=== PATIENT | male | born 1980 | race Hispanic/Latino ===

== ENCOUNTER 2017-07-21 22:16 | Inpatient (IN) | payer OTHER ==
[~2017-07-21] VITALS: Ht 180.3 cm; Wt 92.9 kg
[2017-07-21] MEDS ORDERED: CLINDAMYCIN 600 MG/D5% WATER 50 ML IV ONE (22:44)
[2017-07-21] MEDS ORDERED: ACETAMINOPHEN 325 MG TAB ONE (22:44)
[2017-07-21 22:46] LABS: BASOPHILS % (AUTO) 0.4 % (0.0-5.0); EOSINOPHILS % (AUTO) 0.1 % (0.0-8.0); HEMATOCRIT 38.3 % (42-54); LYMPHOCYTES % (AUTO) 10.3 % (21.0-51.0); MEAN CORPUSCULAR HEMOGLOBIN 29.5 pg (27.0-33.0); MEAN CORPUSCULAR HGB CONC 34.1 g/dL (32.0-36.0); MEAN CORPUSCULAR VOLUME 86.5 fL (79-99); MONOCYTES % (AUTO) 8.5 % (3.0-13.0); NEUTROPHILS % (AUTO) 80.7 % (40.0-77.0); PLATELET COUNT (AUTO) 181 K/uL (130-400); RED BLOOD CELL COUNT(AUTO) 4.43 MIL/uL (4.50-6.20); RED CELL DISTRIBUTION WIDTH 14.2 % (11.0-15.5); WHITE BLOOD COUNT (AUTO) 9.3 K/uL (4.8-10.8)
[2017-07-21 23:03] LABS: BILIRUBIN,TOTAL 0.3 mg/dL (0.2-1.0); CREATININE 1.8 mg/dL (0.5-1.5); POTASSIUM 4.4 mmol/L (3.5-5.1); TOTAL PROTEIN, SERUM 7.6 g/dL (6.0-8.3)
[2017-07-22] MEDS ORDERED: INSULIN HUMULIN R 100 UNIT/ML 3ML ONE ×3 (00:32→08:46)
[2017-07-22 01:05] LABS: APPEARANCE,URINE Clear (CLEAR); BILIRUBIN,URINE Negative (NEGATIVE); COLOR,URINE Yellow (YELLOW); GLUCOSE, URINE (UA) >=1000 mg/dL (NEGATIVE); KETONES,URINE 40 mg/dL (NEGATIVE); LEUKOCYTE ESTERASE ,URINE Negative (NEGATIVE); NITRATE,URINE Negative (NEGATIVE); OCCULT BLOOD,URINE Nonhemolyzed Trace (NEGATIVE); PH,URINE 5.5 (5.0-8.0); PROTEIN,URINE Negative (NEGATIVE); UROBILINOGEN,URINE 0.2 mg/dL (0.2-1.0)
[2017-07-22] MEDS ORDERED: SODIUM CHLORIDE 0.9% 1000ML 1,000 ML IV SCH ×2 (01:15→17:15)
[2017-07-22] MEDS ORDERED: ONDANSETRON HCL MDV 20ML 2 MG/ML VIAL IVP PRN (01:15)
[2017-07-22] MEDS ORDERED: FAMOTIDINE 20MG TAB 20 MG TAB PO SCH (01:15)
[2017-07-22 01:22] LABS: BACTERIA,URINE Rare /HPF (None Seen); RBC,URINE 0-1 /HPF (0-1); WBC,URINE None Seen /HPF (0-1)
[2017-07-22] MEDS ORDERED: FAMOTIDINE 20MG TAB 20 MG TAB ONE (02:18)
[2017-07-22] MEDS ORDERED: CLINDAMYCIN 600 MG/D5% WATER 50 ML IV ONE ×2 (04:27→11:40)
[2017-07-22] MEDS: CLINDAMYCIN 600 MG/D5% WATER 50 ML IV SCH ×3 (07:15→20:30)
[2017-07-22] MEDS: INSULIN HUMULIN R 100 UNIT/ML 3ML SQ SCH ×4 (07:30→20:34)
[2017-07-22 07:54] VITALS: BP 140/75
[2017-07-22] MEDS ORDERED: HUM10VIA6 SQ ×2 (08:06)
[2017-07-22] MEDS: ENOXAPARIN SODIUM 40 MG/0.4 ML SYRINGE SQ SCH (09:00)
[2017-07-22] MEDS: INSULIN HUMULIN 70/30 100 UNIT/ML 3ML SQ SCH (09:00)
[2017-07-22] MEDS ORDERED: ENOXAPARIN SODIUM 40 MG/0.4 ML SYRINGE SQ ONE (11:40)
[2017-07-22] MEDS ORDERED: INSULIN HUMULIN 70/30 100 UNIT/ML 3ML SQ ONE (11:42)
[2017-07-22 14:01] VITALS: BP 128/73
[2017-07-22] MEDS ORDERED: GADOBENATE DIMEGLUMINE 10 ML IV ONE (15:39)
[2017-07-22 16:00] VITALS: BP 135/76
[2017-07-22] MEDS: LEVOFLOXACIN 500 MG/D5W 100 ML 100 ML IV SCH (16:37)
[2017-07-22] MEDS: ACETAMINOPHEN-CODEINE 300/30MG TAB PO PRN (18:11)
[2017-07-22 19:00] VITALS: BP 139/77
[2017-07-22] MEDS ORDERED: INSULIN HUMULIN 70/30 100 UNIT/ML 3ML SQ SCH (21:00)
[2017-07-23] VITALS: BP 113/71
[2017-07-23] MEDS: ACETAMINOPHEN-CODEINE 300/30MG TAB PO PRN (00:07)
[2017-07-23] MEDS: CLINDAMYCIN 600 MG/D5% WATER 50 ML IV SCH ×3 (01:35→12:51)
[2017-07-23 04:00] VITALS: BP 126/63
[2017-07-23 06:14] LABS: BASOPHILS % (AUTO) 0.3 % (0.0-5.0); EOSINOPHILS % (AUTO) 2.5 % (0.0-8.0); HEMATOCRIT 36.8 % (42-54); LYMPHOCYTES % (AUTO) 31.2 % (21.0-51.0); MEAN CORPUSCULAR HEMOGLOBIN 28.9 pg (27.0-33.0); MEAN CORPUSCULAR HGB CONC 33.9 g/dL (32.0-36.0); MEAN CORPUSCULAR VOLUME 85.5 fL (79-99); MONOCYTES % (AUTO) 11.8 % (3.0-13.0); NEUTROPHILS % (AUTO) 54.2 % (40.0-77.0); PLATELET COUNT (AUTO) 194 K/uL (130-400); RED BLOOD CELL COUNT(AUTO) 4.31 MIL/uL (4.50-6.20); RED CELL DISTRIBUTION WIDTH 14.1 % (11.0-15.5); WHITE BLOOD COUNT (AUTO) 5.2 K/uL (4.8-10.8)
[2017-07-23 06:24] LABS: POTASSIUM 3.3 mmol/L (3.5-5.1)
[2017-07-23] MEDS: INSULIN HUMULIN R 100 UNIT/ML 3ML SQ SCH ×3 (06:32→17:29)
[2017-07-23 08:00] VITALS: BP 131/77
[2017-07-23] MEDS: ENOXAPARIN SODIUM 40 MG/0.4 ML SYRINGE SQ SCH (09:33)
[2017-07-23] MEDS: INSULIN HUMULIN 70/30 100 UNIT/ML 3ML SQ SCH (09:38)
[2017-07-23 11:00] VITALS: BP 137/79
[2017-07-23 16:00] VITALS: BP 116/69
[2017-07-23] MEDS: LEVOFLOXACIN 500 MG/D5W 100 ML 100 ML IV SCH (16:15)
[2017-07-23] MEDS ORDERED: INSULIN HUMULIN R 100 UNIT/ML 3ML SQ ONE (17:57)
== END 2017-07-23 18:53 | disposition left against medical advice (07) | DRG 602 ==
LOC: EDH 22:16 → EDHIP 07-22 00:26 → 3AH 07-22 13:44
PROVIDERS: ADMIT Family Medicine; ATTEND Family Medicine
DX: L03.116 Cellulitis of left lower limb (principal); N17.0 Acute kidney failure with tubular necrosis; M86.8X7 Other osteomyelitis, ankle and foot; E10.649 Type 1 diabetes mellitus with hypoglycemia without coma; E87.1 Hypo-osmolality and hyponatremia; E10.51 Type 1 diabetes mellitus with diabetic peripheral angiopathy without gangrene; E10.69 Type 1 diabetes mellitus with other specified complication; E10.65 Type 1 diabetes mellitus with hyperglycemia; Z53.21 Procedure and treatment not carried out due to patient leaving prior to being seen by health care provider; Z83.3 Family history of diabetes mellitus; Z89.412 Acquired absence of left great toe; I10 Essential (primary) hypertension; F17.210 Nicotine dependence, cigarettes, uncomplicated
CPT/HCPCS: 36415; 73630; 73720; 80048; 80053; 81001; 82570; 82948; 84156; 85025; 87040; 87186; A9577; J1650; J1815; J1956; J3490

== ENCOUNTER 2019-04-22 15:42 | Emergency (ER) | payer OTHER ==
[~2019-04-22 15:42] MED LIST: HUM10VIA6 SQ
[2019-04-22] MEDS ORDERED: MAG HYDROX/AL HYDROX/SIMETH ES 30 ML SUSP UDCUP ONE ×2 (15:52→18:05)
[2019-04-22] MEDS ORDERED: LIDOCAINE HCL 2% VISCOUS 15 ML UDCUP ONE ×2 (15:52→18:05)
[2019-04-22] MEDS ORDERED: SODIUM CHLORIDE 0.9% 1000ML 1,000 ML IV ONE ×2 (16:10→18:01)
[2019-04-22] MEDS ORDERED: FAMOTIDINE/PF 20 MG/2 ML VIAL IV ONE (16:10)
[2019-04-22 16:12] LABS: BASOPHILS % (AUTO) 0.3 % (0.0-5.0); EOSINOPHILS % (AUTO) 0.4 % (0.0-8.0); HEMATOCRIT 46.3 % (42-54); LYMPHOCYTES % (AUTO) 19.3 % (21.0-51.0); MEAN CORPUSCULAR HEMOGLOBIN 28.6 pg (27.0-33.0); MEAN CORPUSCULAR HGB CONC 33.5 g/dL (32.0-36.0); MEAN CORPUSCULAR VOLUME 85.4 fL (79-99); MONOCYTES % (AUTO) 8.7 % (3.0-13.0); NEUTROPHILS % (AUTO) 71.2 % (40.0-77.0); PLATELET COUNT (AUTO) 245 K/uL (130-400); RED BLOOD CELL COUNT(AUTO) 5.42 MIL/uL (4.50-6.20); RED CELL DISTRIBUTION WIDTH 13.2 % (11.0-15.5); WHITE BLOOD COUNT (AUTO) 7.3 K/uL (4.8-10.8)
[2019-04-22 16:27] LABS: BILIRUBIN,TOTAL 0.4 mg/dL (0.2-1.0); CREATININE 1.5 mg/dL (0.5-1.5); POTASSIUM 4.6 mmol/L (3.5-5.1); TOTAL PROTEIN, SERUM 7.8 g/dL (6.0-8.3)
[2019-04-22] MEDS ORDERED: ACETAMINOPHEN 325 MG TAB ONE (18:00)
== END 2019-04-22 19:46 | disposition home or self-care (01) ==
LOC: EDH 15:42
DX: K21.9 Gastro-esophageal reflux disease without esophagitis (principal); R11.2 Nausea with vomiting, unspecified; E11.9 Type 2 diabetes mellitus without complications; Z79.4 Long term (current) use of insulin
CPT/HCPCS: 36415; 80053; 83690; 84484; 85025; 93005; 96361; 96374; 99285; J3490; J7030 ×2

== ENCOUNTER 2019-09-04 01:31 | Emergency (ER) | payer OTHER ==
[2019-09-04] MEDS ORDERED: SULFAMETHOX-TMP DS 800/160 TAB ONE (01:50)
== END 2019-09-04 03:07 | disposition home or self-care (01) ==
LOC: EDH 01:31
DX: S91.311A Laceration without foreign body, right foot, initial encounter (principal); E11.9 Type 2 diabetes mellitus without complications; Z72.0 Tobacco use; X58.XXXA Exposure to other specified factors, initial encounter; Y93.89 Activity, other specified; Y92.89 Other specified places as the place of occurrence of the external cause; Y99.8 Other external cause status
CPT/HCPCS: 73660; 93005

== ENCOUNTER 2019-12-05 05:31 | Emergency (ER) | payer OTHER ==
[2019-12-05 06:10] LABS: BASOPHILS % (AUTO) 0.2 % (0.0-5.0); EOSINOPHILS % (AUTO) 1.2 % (0.0-8.0); HEMATOCRIT 42.7 % (42-54); LYMPHOCYTES % (AUTO) 26.1 % (21.0-51.0); MEAN CORPUSCULAR HEMOGLOBIN 28.5 pg (27.0-33.0); MEAN CORPUSCULAR HGB CONC 33.3 g/dL (32.0-36.0); MEAN CORPUSCULAR VOLUME 85.6 fL (79-99); MONOCYTES % (AUTO) 11.5 % (3.0-13.0); NEUTROPHILS % (AUTO) 60.7 % (40.0-77.0); PLATELET COUNT (AUTO) 182 K/uL (130-400); RED BLOOD CELL COUNT(AUTO) 4.99 MIL/uL (4.50-6.20); RED CELL DISTRIBUTION WIDTH 13.1 % (11.0-15.5); WHITE BLOOD COUNT (AUTO) 6.6 K/uL (4.8-10.8)
[2019-12-05 06:19] LABS: POTASSIUM 3.4 mmol/L (3.5-5.1)
[2019-12-05 06:23] LABS: ALBUMIN 3.2 g/dL (3.5-5.0); BILIRUBIN,TOTAL 0.2 mg/dL (0.2-1.0); CRP QUANTITATIVE 66.4 mg/L (0.00-9.0); TOTAL PROTEIN, SERUM 7.3 g/dL (6.0-8.3)
[2019-12-05] MEDS ORDERED: SODIUM CHLORIDE 0.9% 100 ML IV ONE ×2 (06:46→07:01)
[2019-12-05] MEDS ORDERED: CEFTRIAXONE SODIUM 1 GM ONE ×2 (06:46→07:01)
[2019-12-05 07:23] LABS: ERYTHROCYTE SEDIMENTATION RATE 17 MM/HR (0-15)
== END 2019-12-05 07:06 | disposition home or self-care (01) ==
LOC: EDH 05:31
DX: E11.621 Type 2 diabetes mellitus with foot ulcer (principal)
CPT/HCPCS: 36415; 73630; 80053; 82948; 85025; 85651; 86140; 87040; 96374; 99284; J0696 ×2

== ENCOUNTER 2020-03-08 22:38 | Emergency (ER) | payer OTHER ==
[2020-03-08 23:43] LABS: BASOPHILS % (AUTO) 0.2 % (0.0-5.0); EOSINOPHILS % (AUTO) 0.6 % (0.0-8.0); HEMATOCRIT 44.4 % (42-54); LYMPHOCYTES % (AUTO) 18.3 % (21.0-51.0); MEAN CORPUSCULAR HEMOGLOBIN 29.4 pg (27.0-33.0); MEAN CORPUSCULAR HGB CONC 33.3 g/dL (32.0-36.0); MEAN CORPUSCULAR VOLUME 88.1 fL (79-99); MONOCYTES % (AUTO) 7.7 % (3.0-13.0); PLATELET COUNT (AUTO) 211 K/uL (130-400); RED BLOOD CELL COUNT(AUTO) 5.04 MIL/uL (4.50-6.20); RED CELL DISTRIBUTION WIDTH 13.2 % (11.0-15.5); WHITE BLOOD COUNT (AUTO) 9.5 K/uL (4.8-10.8)
[2020-03-08 23:53] LABS: INR 0.87 (0.85-1.15); PARTIAL THROMBOPLASTIN TIME 27.5 SEC (26.3-35.5); PROTHROMBIN TIME 9.4 SEC (9.6-11.6)
[2020-03-08 23:57] LABS: ALBUMIN 3.2 g/dL (3.5-5.0); BILIRUBIN,TOTAL 0.2 mg/dL (0.2-1.0); CREATININE 1.5 mg/dL (0.5-1.5); CRP QUANTITATIVE 95.5 mg/L (0.00-9.0); POTASSIUM 4.3 mmol/L (3.5-5.1); TOTAL PROTEIN, SERUM 7.2 g/dL (6.0-8.3)
[2020-03-09 00:47] LABS: ERYTHROCYTE SEDIMENTATION RATE 20 MM/HR (0-15)
[2020-03-09] MEDS ORDERED: CLINDAMYCIN 600 MG/D5% WATER 50 ML IV ONE (01:01)
[2020-03-09] MEDS ORDERED: INSULIN HUMULIN R 100 UNIT/ML 3ML ONE (01:06)
== END 2020-03-09 01:44 | disposition home or self-care (01) ==
LOC: EDH 22:38
DX: T81.49XA Infection following a procedure, other surgical site, initial encounter (principal); E11.65 Type 2 diabetes mellitus with hyperglycemia; I88.8 Other nonspecific lymphadenitis; L08.9 Local infection of the skin and subcutaneous tissue, unspecified; Z98.890 Other specified postprocedural states
CPT/HCPCS: 36415; 73630; 80053; 82550; 83605; 85025; 85610; 85651; 85730; 86140; 87040 ×2; 93971; 96361; 96365; 96375; 99285; J1815; J3490

== ENCOUNTER 2021-01-09 21:14 | Emergency (ER) | payer OTHER ==
[~2021-01-09] VITALS: Ht 180.3 cm; Wt 93.4 kg
[2021-01-09 21:19] VITALS: BP 111/77
[2021-01-09 22:19] LABS: BASOPHILS % (AUTO) 0.2 % (0.0-5.0); EOSINOPHILS % (AUTO) 1.3 % (0.0-8.0); HEMATOCRIT 39.8 % (42-54); LYMPHOCYTES % (AUTO) 24.5 % (21.0-51.0); MEAN CORPUSCULAR HGB CONC 33.2 g/dL (32.0-36.0); MEAN CORPUSCULAR VOLUME 87.5 fL (79-99); MONOCYTES % (AUTO) 8.4 % (3.0-13.0); NEUTROPHILS % (AUTO) 65.1 % (40.0-77.0); PLATELET COUNT (AUTO) 237 K/uL (130-400); RED BLOOD CELL COUNT(AUTO) 4.55 MIL/uL (4.50-6.20); RED CELL DISTRIBUTION WIDTH 13.8 % (11.0-15.5); WHITE BLOOD COUNT (AUTO) 6.2 K/uL (4.8-10.8)
[2021-01-09 22:33] LABS: CREATININE 1.3 mg/dL (0.5-1.5); POTASSIUM 4.8 mmol/L (3.5-5.1)
[2021-01-09 22:37] LABS: ALBUMIN 3.2 g/dL (3.5-5.0); BILIRUBIN,TOTAL 0.2 mg/dL (0.2-1.0); CRP QUANTITATIVE 43.4 mg/L (0.00-9.0); TOTAL PROTEIN, SERUM 7.3 g/dL (6.0-8.3)
[2021-01-09] MEDS ORDERED: 0.9%NACL 1000ML 1,000 ML IV ONE (23:00)
[2021-01-09] MEDS ORDERED: INSULIN HUMULIN R 100 UNIT/ML 3ML IV ONE (23:00)
[2021-01-10] VITALS: BP 114/73
== END 2021-01-10 00:10 | disposition home or self-care (01) ==
LOC: EDH 21:14
DX: S90.121A Contusion of right lesser toe(s) without damage to nail, initial encounter (principal); E11.40 Type 2 diabetes mellitus with diabetic neuropathy, unspecified; E11.621 Type 2 diabetes mellitus with foot ulcer; E11.65 Type 2 diabetes mellitus with hyperglycemia; Z79.4 Long term (current) use of insulin; Z98.890 Other specified postprocedural states; X58.XXXA Exposure to other specified factors, initial encounter; Y93.89 Activity, other specified; Y92.89 Other specified places as the place of occurrence of the external cause; Y99.8 Other external cause status
CPT/HCPCS: 36415; 73660; 80053; 82948; 85025; 86140; 96374; 99284; J1815; J7030; 96372

== ENCOUNTER 2021-06-29 22:11 | Inpatient (IN) | payer OTHER ==
[~2021-06-29] VITALS: Ht 177.8 cm; Wt 88.3 kg
[2021-06-29] MEDS ORDERED: MORPHINE 4 MG SYG IV ONE (23:00)
[2021-06-29] MEDS ORDERED: ONDANSETRON 4MG INJ IVP ONE (23:00)
[2021-06-29 23:02] LABS: BASOPHILS % (AUTO) 0.2 % (0.0-5.0); EOSINOPHILS % (AUTO) 0.5 % (0.0-8.0); HEMATOCRIT 30.1 % (42-54); LYMPHOCYTES % (AUTO) 17.6 % (21.0-51.0); MEAN CORPUSCULAR HEMOGLOBIN 26.6 pg (27.0-33.0); MEAN CORPUSCULAR HGB CONC 32.6 g/dL (32.0-36.0); MEAN CORPUSCULAR VOLUME 81.8 fL (79-99); MONOCYTES % (AUTO) 11.5 % (3.0-13.0); NEUTROPHILS % (AUTO) 69.9 % (40.0-77.0); PLATELET COUNT (AUTO) 195 K/uL (130-400); RED BLOOD CELL COUNT(AUTO) 3.68 MIL/uL (4.50-6.20); RED CELL DISTRIBUTION WIDTH 14.3 % (11.0-15.5); WHITE BLOOD COUNT (AUTO) 6.4 K/uL (4.8-10.8)
[2021-06-29 23:11] LABS: CREATININE 1.2 mg/dL (0.5-1.5); POTASSIUM 3.5 mmol/L (3.5-5.1)
[2021-06-29 23:18] LABS: ALBUMIN 2.4 g/dL (3.5-5.0); BILIRUBIN,TOTAL 0.2 mg/dL (0.2-1.0); TOTAL PROTEIN, SERUM 7.1 g/dL (6.0-8.3)
[2021-06-29 23:27] LABS: CRP QUANTITATIVE 265.8 mg/L (0.00-9.0)
[2021-06-30 00:06] LABS: ERYTHROCYTE SEDIMENTATION RATE 88 MM/HR (0-15)
[2021-06-30] MEDS ORDERED: LEVOFLOXACIN 750 MG/D5W 150 ML 150 ML ONE (00:53)
[2021-06-30] MEDS ORDERED: MORPHINE 4 MG SYG ONE (02:55)
[2021-06-30] MEDS ORDERED: MORPHINE 4 MG SYG IV ONE (03:00)
[2021-06-30] MEDS ORDERED: GUAIFENESIN-DM 200/20 MG 10 ML PO PRN (03:30)
[2021-06-30] MEDS ORDERED: LACTULOSE 20 GM/30 ML UDCUP PO PRN (03:30)
[2021-06-30] MEDS ORDERED: NITROGLYCERIN 0.4 MG SL TAB SL PRN (03:30)
[2021-06-30] MEDS ORDERED: DIPHENHYDRAMINE HCL 25 MG CAPSULE PO PRN (03:30)
[2021-06-30] MEDS ORDERED: GLUCAGON 1MG KIT 1 MG ML IM PRN (03:30)
[2021-06-30] MEDS ORDERED: MAG/ALUM/SIMETH 30 ML UDCUP PO PRN (03:30)
[2021-06-30] MEDS ORDERED: ONDANSETRON 4MG INJ IV PRN (03:30)
[2021-06-30] MEDS ORDERED: ACETAMINOPHEN WITH CODEINE 1 TAB TAB PO PRN (03:30)
[2021-06-30] MEDS ORDERED: DEXTROSE 50%-WATER 50 ML DISP.SYRIN IV PRN (03:30)
[2021-06-30 03:58] LABS: HEMOGLOBIN A1C 10.4 % (4.0-6.0)
[2021-06-30 04:50] VITALS: BP 118/69
[2021-06-30] MEDS: 0.9%NACL 1000ML 1,000 ML IV SCH ×2 (05:02→15:33)
[2021-06-30] MEDS: CLINDAMYCIN IVPB 600MG/50ML 50 ML IV SCH ×2 (05:02→12:09)
[2021-06-30] MEDS: ACETAMINOPHEN WITH CODEINE 1 TAB TAB PO PRN ×2 (05:16→21:27)
[2021-06-30] MEDS: INSULIN HUMULIN R 100 UNIT/ML 3ML SQ SCH ×6 (06:33→21:22)
[2021-06-30 07:59] VITALS: BP 119/67
[2021-06-30] MEDS: FAMOTIDINE 20MG VIAL IV SCH ×2 (08:26→21:13)
[2021-06-30] MEDS: ENOXAPARIN SODIUM 40 MG/0.4 ML SYRINGE SQ SCH (08:29)
[2021-06-30] MEDS ORDERED: LEVOFLOXACIN 750 MG/D5W 150 ML 150 ML IV ONE (09:00)
[2021-06-30] MEDS: MORPHINE 2 MG SYG IVP PRN ×2 (10:34→17:19)
[2021-06-30 11:40] VITALS: BP 146/71
[2021-06-30] MEDS ORDERED: VANCOMYCIN PROTOCOL PER PHARMACY IV SCH (15:00)
[2021-06-30 15:35] VITALS: BP 135/70
[2021-06-30] MEDS ORDERED: COMPOUND IV REFRIGERATED 1 EACH IVSOLN MISC PRN (16:00)
[2021-06-30] MEDS: CEFEPIME HCL 1 GM VIAL IVP SCH ×2 (16:05→22:57)
[2021-06-30] MEDS: VANCOMYCIN 1.5GM/NS 250ML IV SCH ×2 (16:25)
[2021-06-30] MEDS ORDERED: ACETAMINOPHEN 500 MG TABLET PO PRN (17:00)
[2021-06-30 20:00] VITALS: BP 123/69
[2021-06-30] MEDS: INSULIN GLARGINE 100 UNITS/ML 10 ML VIAL SQ SCH (21:21)
[2021-07-01] VITALS: BP 113/67
[2021-07-01] MEDS: MORPHINE 2 MG SYG IVP PRN ×3 (01:42→18:46)
[2021-07-01] MEDS: 0.9%NACL 1000ML 1,000 ML IV SCH ×2 (01:42→15:22)
[2021-07-01] MEDS: VANCOMYCIN 1.5GM/NS 250ML IV SCH ×4 (02:57→15:22)
[2021-07-01 04:00] VITALS: BP 121/64
[2021-07-01 04:56] LABS: HEMATOCRIT 28.5 % (42-54); MEAN CORPUSCULAR HEMOGLOBIN 26.5 pg (27.0-33.0); MEAN CORPUSCULAR HGB CONC 31.9 g/dL (32.0-36.0); MEAN CORPUSCULAR VOLUME 83.1 fL (79-99); RED BLOOD CELL COUNT(AUTO) 3.43 MIL/uL (4.50-6.20); RED CELL DISTRIBUTION WIDTH 14.5 % (11.0-15.5); WHITE BLOOD COUNT (AUTO) 5.9 K/uL (4.8-10.8)
[2021-07-01 05:13] LABS: POTASSIUM 3.9 mmol/L (3.5-5.1)
[2021-07-01 05:39] LABS: CRP QUANTITATIVE 256.5 mg/L (0.00-9.0)
[2021-07-01] MEDS: CEFEPIME HCL 1 GM VIAL IVP SCH ×3 (06:08→23:07)
[2021-07-01] MEDS: INSULIN HUMULIN R 100 UNIT/ML 3ML SQ SCH ×4 (06:13→21:25)
[2021-07-01 07:35] VITALS: BP 144/71
[2021-07-01] MEDS: ENOXAPARIN SODIUM 40 MG/0.4 ML SYRINGE SQ SCH ×2 (09:00→09:22)
[2021-07-01] MEDS: FAMOTIDINE 20MG VIAL IV SCH ×2 (09:22→21:20)
[2021-07-01 11:02] LABS: % IRON SATURATION 4.9 % (30-44)
[2021-07-01 11:30] VITALS: BP 141/66
[2021-07-01 15:35] VITALS: BP 141/68
[2021-07-01] MEDS: ACETAMINOPHEN WITH CODEINE 1 TAB TAB PO PRN (17:22)
[2021-07-01 20:00] VITALS: BP 131/66
[2021-07-01] MEDS: INSULIN GLARGINE 100 UNITS/ML 10 ML VIAL SQ SCH (21:24)
[2021-07-01] MEDS ORDERED: METF-444 PO (23:48)
[2021-07-02] VITALS (23 sets, daily range): BP systolic 116–160; BP diastolic 59–84
[2021-07-02] MEDS: VANCOMYCIN 1.5GM/NS 250ML IV SCH ×6 (01:56→22:28)
[2021-07-02] MEDS: MORPHINE 2 MG SYG IVP PRN ×3 (01:56→19:29)
[2021-07-02] MEDS: 0.9%NACL 1000ML 1,000 ML IV SCH ×2 (02:56→15:46)
[2021-07-02 04:34] LABS: HEMATOCRIT 28.1 % (42-54); MEAN CORPUSCULAR HGB CONC 32.4 g/dL (32.0-36.0); MEAN CORPUSCULAR VOLUME 83.4 fL (79-99); RED BLOOD CELL COUNT(AUTO) 3.37 MIL/uL (4.50-6.20); RED CELL DISTRIBUTION WIDTH 14.4 % (11.0-15.5); WHITE BLOOD COUNT (AUTO) 5.5 K/uL (4.8-10.8)
[2021-07-02 04:49] LABS: ALBUMIN 2.1 g/dL (3.5-5.0); CREATININE 0.8 mg/dL (0.5-1.5); POTASSIUM 3.7 mmol/L (3.5-5.1)
[2021-07-02 05:19] LABS: CRP QUANTITATIVE 294.9 mg/L (0.00-9.0)
[2021-07-02] MEDS: CEFEPIME HCL 1 GM VIAL IVP SCH ×3 (05:36→23:00)
[2021-07-02] MEDS: INSULIN HUMULIN R 100 UNIT/ML 3ML SQ SCH ×4 (05:41→21:08)
[2021-07-02] MEDS ORDERED: LIDOCAINE HCL 1% MDV 50ML VIAL ONE (08:35)
[2021-07-02] MEDS: ENOXAPARIN SODIUM 40 MG/0.4 ML SYRINGE SQ SCH (08:35)
[2021-07-02] MEDS: FAMOTIDINE 20MG VIAL IV SCH ×2 (08:35→19:28)
[2021-07-02] MEDS ORDERED: BUPIVACAINE/PF 0.5% 30ML VIAL ONE (08:35)
[2021-07-02] MEDS ORDERED: FENTANYL CITRATE PF 50 MCG/1 ML 2ML VIAL ONE (09:27)
[2021-07-02] MEDS ORDERED: MIDAZOLAM HCL 1 MG/ML 2ML VIAL ONE ×2 (09:27→09:37)
[2021-07-02] MEDS ORDERED: PROPOFOL 10 MG/ML 20ML VIAL IV ONE (10:31)
[2021-07-02] MEDS: HYDROMORPHONE 0.5 MG SYG (0.5MG/0.5ML) IVP PRN ×2 (17:23→22:34)
[2021-07-02] MEDS: INSULIN GLARGINE 100 UNITS/ML 10 ML VIAL SQ SCH (21:07)
[2021-07-03] MEDS: HYDROMORPHONE 0.5 MG SYG (0.5MG/0.5ML) IVP PRN ×4 (02:59→18:18)
[2021-07-03] MEDS: 0.9%NACL 1000ML 1,000 ML IV SCH ×2 (03:02→15:11)
[2021-07-03 03:40] VITALS: BP 110/52
[2021-07-03] MEDS: CEFEPIME HCL 1 GM VIAL IVP SCH ×2 (05:48→15:03)
[2021-07-03] MEDS: INSULIN HUMULIN R 100 UNIT/ML 3ML SQ SCH ×4 (05:54→21:37)
[2021-07-03] MEDS: VANCOMYCIN 1.5GM/NS 250ML IV SCH ×6 (06:12→21:29)
[2021-07-03 08:00] VITALS: BP 138/67
[2021-07-03] MEDS: FAMOTIDINE 20MG VIAL IV SCH ×2 (08:37→21:26)
[2021-07-03] MEDS: ENOXAPARIN SODIUM 40 MG/0.4 ML SYRINGE SQ SCH (08:38)
[2021-07-03 12:00] VITALS: BP 139/66
[2021-07-03 16:00] VITALS: BP 145/73
[2021-07-03 20:00] VITALS: BP 129/66
[2021-07-03] MEDS: MORPHINE 2 MG SYG IVP PRN (21:22)
[2021-07-03] MEDS: INSULIN GLARGINE 100 UNITS/ML 10 ML VIAL SQ SCH (21:36)
[2021-07-04] VITALS: BP 128/62
[2021-07-04] MEDS: CEFEPIME HCL 1 GM VIAL IVP SCH ×3 (00:22→17:40)
[2021-07-04] MEDS: HYDROMORPHONE 0.5 MG SYG (0.5MG/0.5ML) IVP PRN ×5 (00:47→21:53)
[2021-07-04] MEDS: 0.9%NACL 1000ML 1,000 ML IV SCH ×2 (03:50→10:15)
[2021-07-04 04:00] VITALS: BP 136/65
[2021-07-04] MEDS: VANCOMYCIN 1.5GM/NS 250ML IV SCH ×4 (05:31→17:40)
[2021-07-04 05:37] LABS: BASOPHILS % (AUTO) 0.2 % (0.0-5.0); EOSINOPHILS % (AUTO) 3.7 % (0.0-8.0); HEMATOCRIT 27.2 % (42-54); MEAN CORPUSCULAR HEMOGLOBIN 26.8 pg (27.0-33.0); MEAN CORPUSCULAR VOLUME 83.7 fL (79-99); MONOCYTES % (AUTO) 12.4 % (3.0-13.0); NEUTROPHILS % (AUTO) 56.3 % (40.0-77.0); PLATELET COUNT (AUTO) 203 K/uL (130-400); RED BLOOD CELL COUNT(AUTO) 3.25 MIL/uL (4.50-6.20); WHITE BLOOD COUNT (AUTO) 5.4 K/uL (4.8-10.8)
[2021-07-04] MEDS: INSULIN HUMULIN R 100 UNIT/ML 3ML SQ SCH ×4 (05:52→21:51)
[2021-07-04 06:03] LABS: BILIRUBIN,TOTAL 0.3 mg/dL (0.2-1.0); CREATININE 0.9 mg/dL (0.5-1.5); POTASSIUM 3.5 mmol/L (3.5-5.1)
[2021-07-04 08:00] VITALS: BP 120/61
[2021-07-04] MEDS: FAMOTIDINE 20MG VIAL IV SCH ×2 (10:16→21:52)
[2021-07-04] MEDS: ENOXAPARIN SODIUM 40 MG/0.4 ML SYRINGE SQ SCH (10:18)
[2021-07-04 12:00] VITALS: BP 141/71
[2021-07-04 16:00] VITALS: BP 117/60
[2021-07-04 20:00] VITALS: BP 127/68
[2021-07-04] MEDS: INSULIN GLARGINE 100 UNITS/ML 10 ML VIAL SQ SCH (21:51)
[2021-07-05] VITALS (7 sets, daily range): BP systolic 112–150; BP diastolic 50–80
[2021-07-05] MEDS: CEFEPIME HCL 1 GM VIAL IVP SCH ×2 (01:16→09:03)
[2021-07-05] MEDS: VANCOMYCIN 1.5GM/NS 250ML IV SCH ×4 (01:17→09:03)
[2021-07-05] MEDS: HYDROMORPHONE 0.5 MG SYG (0.5MG/0.5ML) IVP PRN ×4 (02:24→22:23)
[2021-07-05 05:13] LABS: BASOPHILS % (AUTO) 0.2 % (0.0-5.0); EOSINOPHILS % (AUTO) 4.3 % (0.0-8.0); HEMATOCRIT 26.1 % (42-54); LYMPHOCYTES % (AUTO) 20.9 % (21.0-51.0); MEAN CORPUSCULAR HEMOGLOBIN 26.5 pg (27.0-33.0); MEAN CORPUSCULAR HGB CONC 31.8 g/dL (32.0-36.0); MEAN CORPUSCULAR VOLUME 83.4 fL (79-99); NEUTROPHILS % (AUTO) 63.3 % (40.0-77.0); PLATELET COUNT (AUTO) 239 K/uL (130-400); RED BLOOD CELL COUNT(AUTO) 3.13 MIL/uL (4.50-6.20); RED CELL DISTRIBUTION WIDTH 13.9 % (11.0-15.5); WHITE BLOOD COUNT (AUTO) 5.8 K/uL (4.8-10.8)
[2021-07-05 05:26] LABS: ALBUMIN 1.9 g/dL (3.5-5.0); BILIRUBIN,TOTAL 0.2 mg/dL (0.2-1.0); CREATININE 0.9 mg/dL (0.5-1.5); POTASSIUM 3.7 mmol/L (3.5-5.1); TOTAL PROTEIN, SERUM 6.9 g/dL (6.0-8.3)
[2021-07-05] MEDS: INSULIN HUMULIN R 100 UNIT/ML 3ML SQ SCH ×5 (06:56→20:35)
[2021-07-05] MEDS: FAMOTIDINE 20MG VIAL IV SCH ×2 (09:02→20:31)
[2021-07-05] MEDS: ENOXAPARIN SODIUM 40 MG/0.4 ML SYRINGE SQ SCH (09:04)
[2021-07-05] MEDS: MORPHINE 2 MG SYG IVP PRN ×2 (10:32→18:19)
[2021-07-05] MEDS: 0.9%NACL 1000ML 1,000 ML IV SCH ×2 (12:55→16:03)
[2021-07-05] MEDS: CEFAZOLIN SODIUM 1 GM VIAL IVP SCH ×2 (14:03→21:48)
[2021-07-05] MEDS: INSULIN GLARGINE 100 UNITS/ML 10 ML VIAL SQ SCH (20:34)
[2021-07-06] MEDS: 0.9%NACL 1000ML 1,000 ML IV SCH (02:36)
[2021-07-06 03:45] VITALS: BP 120/66
[2021-07-06 04:34] LABS: BASOPHILS % (AUTO) 0.4 % (0.0-5.0); EOSINOPHILS % (AUTO) 5.1 % (0.0-8.0); HEMATOCRIT 26.9 % (42-54); LYMPHOCYTES % (AUTO) 28.5 % (21.0-51.0); MEAN CORPUSCULAR HEMOGLOBIN 26.9 pg (27.0-33.0); MEAN CORPUSCULAR HGB CONC 32.3 g/dL (32.0-36.0); NEUTROPHILS % (AUTO) 53.6 % (40.0-77.0); PLATELET COUNT (AUTO) 397 K/uL (130-400); RED BLOOD CELL COUNT(AUTO) 3.24 MIL/uL (4.50-6.20); RED CELL DISTRIBUTION WIDTH 13.8 % (11.0-15.5); WHITE BLOOD COUNT (AUTO) 5.7 K/uL (4.8-10.8)
[2021-07-06 04:53] LABS: BILIRUBIN,TOTAL 0.2 mg/dL (0.2-1.0); POTASSIUM 3.6 mmol/L (3.5-5.1); TOTAL PROTEIN, SERUM 7.1 g/dL (6.0-8.3)
[2021-07-06] MEDS: MORPHINE 2 MG SYG IVP PRN ×2 (05:01→10:47)
[2021-07-06] MEDS: CEFAZOLIN SODIUM 1 GM VIAL IVP SCH ×2 (06:13→14:26)
[2021-07-06] MEDS: INSULIN HUMULIN R 100 UNIT/ML 3ML SQ SCH ×2 (06:18→11:59)
[2021-07-06 07:00] VITALS: BP 119/64
[2021-07-06] MEDS: FAMOTIDINE 20MG VIAL IV SCH (07:50)
[2021-07-06] MEDS: ENOXAPARIN SODIUM 40 MG/0.4 ML SYRINGE SQ SCH (07:51)
[2021-07-06 11:00] VITALS: BP 133/80
[2021-07-06 16:13] VITALS: BP 144/73
== END 2021-07-06 16:35 | DRG 573 ==
LOC: EDH 22:11 → EDHIP 06-30 03:06 → 3DH 06-30 04:37
PROVIDERS: ADMIT Hospitalist; ATTEND Hospitalist
PROC: 0YBM0ZZ Excision of Right Foot, Open Approach (ICD-10-PCS; 2021-07-02)
PROC: 0QBN0ZZ Excision of Right Metatarsal, Open Approach (ICD-10-PCS; 2021-07-02)
PROC: 0JBQ0ZZ Excision of Right Foot Subcutaneous Tissue and Fascia, Open Approach (ICD-10-PCS; principal; 2021-07-02 10:07)
DX: L03.115 Cellulitis of right lower limb (principal); E43 Unspecified severe protein-calorie malnutrition; L97.419 Non-pressure chronic ulcer of right heel and midfoot with unspecified severity; E87.1 Hypo-osmolality and hyponatremia; R78.81 Bacteremia; M86.9 Osteomyelitis, unspecified; L97.429 Non-pressure chronic ulcer of left heel and midfoot with unspecified severity; L03.116 Cellulitis of left lower limb; E11.621 Type 2 diabetes mellitus with foot ulcer; E11.42 Type 2 diabetes mellitus with diabetic polyneuropathy; E11.628 Type 2 diabetes mellitus with other skin complications; L97.519 Non-pressure chronic ulcer of other part of right foot with unspecified severity; L97.529 Non-pressure chronic ulcer of other part of left foot with unspecified severity; D64.9 Anemia, unspecified
CPT/HCPCS: 36415; 71045; 73630; 73700; 73718; 80048; 80053; 80202; 82010; 82040; 82607; 82728; 82746; 82948; 83036; 83540; 83550; 83605; 84484; 85025; 85027; 85651; 86140; 87040; 87070; 87076; 87077; 87186; 87205; 87635; 87804; 93005; 93306; 93925; 93971; 97039; 99291; C9803; G0378; J0690; J0692; J1170; J1650; J1815; J1956; J2250; J2270; J2405; J2704; J3010; J3370; J3490; J7030; J7050

== ENCOUNTER 2022-09-18 02:39 | Emergency (ER) | payer OTHER ==
[~2022-09-18] VITALS: Ht 180.3 cm; Wt 90.3 kg
[~2022-09-18 02:39] MED LIST changes: +HUM10VIA SQ; -HUM10VIA6 SQ; +METF-444 PO
[2022-09-18 02:42] VITALS: BP 123/79
[2022-09-18] MEDS ORDERED: IBUP-1493 PO (03:31)
[2022-09-18] MEDS ORDERED: CEPH500B PO (03:31)
== END 2022-09-18 03:38 | disposition home or self-care (01) ==
LOC: EDH 02:39
DX: J38.3 Other diseases of vocal cords (principal); L72.3 Sebaceous cyst; E11.9 Type 2 diabetes mellitus without complications; Z79.84 Long term (current) use of oral hypoglycemic drugs; Z79.899 Other long term (current) drug therapy; Z98.890 Other specified postprocedural states; Z88.0 Allergy status to penicillin; W57.XXXA Bitten or stung by nonvenomous insect and other nonvenomous arthropods, initial encounter; Y93.89 Activity, other specified; Y92.89 Other specified places as the place of occurrence of the external cause; Y99.8 Other external cause status

== ENCOUNTER 2022-11-26 11:49 | Inpatient (IN) | payer OTHER ==
[~2022-11-26] VITALS: Ht 180.3 cm; Wt 92.5 kg
[~2022-11-26 11:49] MED LIST changes: +AEC81 PO; +FAMO20TA8 PO; -METF-444 PO; +RIVA2.5T PO; +TRAM50TA4 PO
[2022-11-26 12:49] LABS: BASOPHILS # (AUTO) 0.02 K/uL (0.00-0.20); BASOPHILS % (AUTO) 0.3 % (0.0-5.0); EOSINOPHILS # (AUTO) 0.16 K/uL (0.00-0.70); EOSINOPHILS % (AUTO) 2.6 % (0.0-8.0); IMMATURE GRANULOCYTE ABSOLUTE 0.02 K/uL (0-1); LYMPHOCYTES # (AUTO) 1.3 K/uL (1.0-4.8); LYMPHOCYTES % (AUTO) 20.5 % (21.0-51.0); MEAN CORPUSCULAR HGB CONC 32.8 g/dL (32.0-36.0); MEAN CORPUSCULAR VOLUME 79.3 fL (79-99); MONOCYTES # (AUTO) 0.5 K/uL (0.1-1.0); MONOCYTES % (AUTO) 7.9 % (3.0-13.0); NEUTROPHILS # (AUTO) 4.2 K/uL (1.8-7.7); NEUTROPHILS % (AUTO) 68.4 % (40.0-77.0); PLATELET COUNT (AUTO) 273 K/uL (130-400); RED BLOOD CELL COUNT(AUTO) 4.54 MIL/uL (4.50-6.20); RED CELL DISTRIBUTION WIDTH 14.7 % (11.0-15.5); WHITE BLOOD COUNT (AUTO) 6.2 K/uL (4.8-10.8)
[2022-11-26] MEDS ORDERED: MORPHINE 4 MG SYG IVP ONE (13:00)
[2022-11-26] MEDS ORDERED: ONDANSETRON 4MG INJ IVP ONE (13:00)
[2022-11-26 13:04] LABS: ALBUMIN 3.2 g/dL (3.5-5.0); CREATININE 1.4 mg/dL (0.5-1.5); POTASSIUM 4.4 mmol/L (3.5-5.1)
[2022-11-26 13:07] LABS: BILIRUBIN,TOTAL 0.3 mg/dL (0.2-1.0); INR 0.93 (0.85-1.15); PROTHROMBIN TIME 10.2 SEC (9.6-11.6); TOTAL PROTEIN, SERUM 7.9 g/dL (6.0-8.3)
[2022-11-26 13:09] LABS: PARTIAL THROMBOPLASTIN TIME 24.4 SEC (26.3-35.5)
[2022-11-26] MEDS ORDERED: VANCOMYCIN 750MG VIAL IVPB ONE (13:30)
[2022-11-26] MEDS ORDERED: 0.9%NACL 1000ML 1,000 ML IV ONE (13:30)
[2022-11-26] MEDS ORDERED: 0.9% NACL 250ML IVPB ONE (13:30)
[2022-11-26] MEDS ORDERED: INSULIN HUMULIN R 100 UNIT/ML 3ML IV ONE (13:30)
[2022-11-26] MEDS ORDERED: VANCOMYCIN PROTOCOL PER PHARMACY IV SCH (14:30)
[2022-11-26] MEDS ORDERED: ONDANSETRON 4MG INJ IV PRN (14:30)
[2022-11-26] MEDS ORDERED: DEXTROSE 50%-WATER 50 ML DISP.SYRIN IV PRN (14:30)
[2022-11-26] MEDS ORDERED: GLUCAGON 1MG KIT 1 MG ML IM PRN (14:30)
[2022-11-26] MEDS ORDERED: ACETAMINOPHEN 325 MG TAB PO PRN (14:30)
[2022-11-26] MEDS ORDERED: VANCOMYCIN 2GM/500 ML BAG 500 ML IV SCH (15:30)
[2022-11-26] MEDS: CEFEPIME HCL 1 GM VIAL IVPB SCH (16:06)
[2022-11-26] MEDS: INSULIN HUMULIN R 100 UNIT/ML 3ML SQ SCH ×2 (16:30→21:34)
[2022-11-26] MEDS: KETOROLAC 15MG/ML VIAL (15MG/ML) IM PRN (18:06)
[2022-11-26] MEDS: FAMOTIDINE 20MG TAB PO SCH (21:23)
[2022-11-26 21:50] VITALS: BP 125/69; PULSE 83; RESP 20
[2022-11-26 21:55] VITALS: O2SAT 96
[2022-11-26 23:03] VITALS: BP 120/60; PULSE 75; RESP 18
[2022-11-26] MEDS: ACETAMINOPHEN 325 MG TAB PO PRN (23:33)
[2022-11-27] VITALS (7 sets, daily range): BP systolic 124–151; BP diastolic 63–79; PULSE 65–86; RESP 16–20; O2SAT 96
[2022-11-27] MEDS: KETOROLAC 15MG/ML VIAL (15MG/ML) IM PRN ×3 (00:26→19:44)
[2022-11-27] MEDS: CEFEPIME HCL 1 GM VIAL IVPB SCH ×2 (02:53→14:37)
[2022-11-27] MEDS: VANCOMYCIN 1G/250ML KIT 250 ML IV SCH ×2 (04:46→15:17)
[2022-11-27 04:51] LABS: HEMATOCRIT 30.3 % (42-54); MEAN CORPUSCULAR HEMOGLOBIN 26.4 pg (27.0-33.0); MEAN CORPUSCULAR HGB CONC 32.3 g/dL (32.0-36.0); MEAN CORPUSCULAR VOLUME 81.7 fL (79-99); RED BLOOD CELL COUNT(AUTO) 3.71 MIL/uL (4.50-6.20); RED CELL DISTRIBUTION WIDTH 14.7 % (11.0-15.5)
[2022-11-27 04:55] LABS: CREATININE 1.3 mg/dL (0.5-1.5); POTASSIUM 3.9 mmol/L (3.5-5.1)
[2022-11-27 04:58] LABS: HEMOGLOBIN A1C 11.8 % (4.0-6.0)
[2022-11-27] MEDS: INSULIN HUMULIN R 100 UNIT/ML 3ML SQ SCH ×4 (06:04→20:46)
[2022-11-27] MEDS: FAMOTIDINE 20MG TAB PO SCH ×2 (09:17→21:21)
[2022-11-27] MEDS: MORPHINE 2 MG SYG IVP PRN ×3 (09:50→21:05)
[2022-11-27] MEDS: ACETAMINOPHEN 325 MG TAB PO PRN (23:48)
[2022-11-28] VITALS (8 sets, daily range): BP systolic 118–145; BP diastolic 68–78; PULSE 70–83; RESP 18–20; O2SAT 98–99
[2022-11-28] MEDS: MORPHINE 2 MG SYG IVP PRN ×5 (01:43→21:29)
[2022-11-28 01:56] LABS: HEMATOCRIT 32.6 % (42-54); MEAN CORPUSCULAR HGB CONC 31.9 g/dL (32.0-36.0); MEAN CORPUSCULAR VOLUME 81.5 fL (79-99); RED CELL DISTRIBUTION WIDTH 14.6 % (11.0-15.5)
[2022-11-28 02:12] LABS: ALBUMIN 2.7 g/dL (3.5-5.0); BILIRUBIN,TOTAL 0.2 mg/dL (0.2-1.0); CREATININE 0.9 mg/dL (0.5-1.5); MAGNESIUM 1.6 mg/dL (1.80-2.40); POTASSIUM 3.7 mmol/L (3.5-5.1); TOTAL PROTEIN, SERUM 7.1 g/dL (6.0-8.3)
[2022-11-28 02:26] LABS: VANCOMYCIN TROUGH 8.8 UG/ML (10.0-20.0)
[2022-11-28] MEDS: CEFEPIME HCL 1 GM VIAL IVPB SCH ×2 (02:48→14:37)
[2022-11-28] MEDS: VANCOMYCIN 1G/250ML KIT 250 ML IV SCH (04:57)
[2022-11-28] MEDS: INSULIN HUMULIN R 100 UNIT/ML 3ML SQ SCH ×4 (05:37→21:32)
[2022-11-28] MEDS ORDERED: LISINOPRIL 5 MG TABLET PO ONE (09:00)
[2022-11-28] MEDS: FAMOTIDINE 20MG TAB PO SCH ×2 (09:34→21:31)
[2022-11-28] MEDS: MAGNESIUM 2GM PREMIX 50ML 50 ML IV SCH (09:34)
[2022-11-28] MEDS: POTASSIUM CHLORIDE 20 MEQ/100 ML BAG IV SCH (09:42)
[2022-11-28] MEDS: ACETAMINOPHEN 325 MG TAB PO PRN (12:38)
[2022-11-28] MEDS: VANCOMYCIN 1.25 GM/250 ML BAG 250 ML IV SCH (16:10)
[2022-11-28] MEDS: METRONIDAZOLE 500 MG TABLET PO SCH ×2 (16:10→21:31)
[2022-11-28] MEDS: INSULIN HUMULIN 70/30 100 UNIT/ML 3ML SQ SCH (16:47)
[2022-11-29] VITALS (7 sets, daily range): BP systolic 127–139; BP diastolic 66–72; PULSE 62–83; RESP 20; O2SAT 97
[2022-11-29] MEDS: CEFEPIME HCL 1 GM VIAL IVPB SCH ×2 (02:30→14:13)
[2022-11-29] MEDS: MORPHINE 2 MG SYG IVP PRN ×4 (02:46→20:30)
[2022-11-29] MEDS: VANCOMYCIN 1.25 GM/250 ML BAG 250 ML IV SCH ×2 (03:30→16:16)
[2022-11-29 05:44] LABS: HEMATOCRIT 33.2 % (42-54); MEAN CORPUSCULAR HEMOGLOBIN 26.5 pg (27.0-33.0); MEAN CORPUSCULAR HGB CONC 31.9 g/dL (32.0-36.0); RED CELL DISTRIBUTION WIDTH 14.8 % (11.0-15.5); WHITE BLOOD COUNT (AUTO) 4.7 K/uL (4.8-10.8)
[2022-11-29 06:20] LABS: ALBUMIN 2.6 g/dL (3.5-5.0); BILIRUBIN,TOTAL 0.1 mg/dL (0.2-1.0); CREATININE 1.3 mg/dL (0.5-1.5); MAGNESIUM 1.9 mg/dL (1.80-2.40); POTASSIUM 4.5 mmol/L (3.5-5.1); TOTAL PROTEIN, SERUM 6.8 g/dL (6.0-8.3)
[2022-11-29] MEDS: METRONIDAZOLE 500 MG TABLET PO SCH ×3 (07:19→23:38)
[2022-11-29] MEDS: INSULIN HUMULIN R 100 UNIT/ML 3ML SQ SCH ×4 (07:21→20:58)
[2022-11-29] MEDS: INSULIN HUMULIN 70/30 100 UNIT/ML 3ML SQ SCH ×2 (07:22→17:02)
[2022-11-29] MEDS: FAMOTIDINE 20MG TAB PO SCH ×2 (08:40→20:29)
[2022-11-29] MEDS: POTASSIUM CHLORIDE 20 MEQ/100 ML BAG IV SCH (08:40)
[2022-11-30] VITALS (7 sets, daily range): BP systolic 98–145; BP diastolic 47–84; PULSE 76–91; RESP 18–20; O2SAT 97
[2022-11-30] MEDS: MORPHINE 2 MG SYG IVP PRN ×5 (00:57→22:11)
[2022-11-30] MEDS: CEFEPIME HCL 1 GM VIAL IVPB SCH ×2 (02:24→14:51)
[2022-11-30] MEDS: ACETAMINOPHEN 325 MG TAB PO PRN (02:34)
[2022-11-30] MEDS: VANCOMYCIN 1.25 GM/250 ML BAG 250 ML IV SCH ×2 (03:15→16:24)
[2022-11-30 05:22] LABS: HEMATOCRIT 32.4 % (42-54); MEAN CORPUSCULAR HEMOGLOBIN 25.8 pg (27.0-33.0); MEAN CORPUSCULAR HGB CONC 31.5 g/dL (32.0-36.0); MEAN CORPUSCULAR VOLUME 81.8 fL (79-99); RED BLOOD CELL COUNT(AUTO) 3.96 MIL/uL (4.50-6.20); RED CELL DISTRIBUTION WIDTH 15.2 % (11.0-15.5); WHITE BLOOD COUNT (AUTO) 5.8 K/uL (4.8-10.8)
[2022-11-30 06:05] LABS: ALBUMIN 2.6 g/dL (3.5-5.0); BILIRUBIN,TOTAL 0.2 mg/dL (0.2-1.0); CREATININE 1.1 mg/dL (0.5-1.5); MAGNESIUM 1.7 mg/dL (1.80-2.40); TOTAL PROTEIN, SERUM 6.6 g/dL (6.0-8.3)
[2022-11-30] MEDS: METRONIDAZOLE 500 MG TABLET PO SCH ×3 (06:19→22:03)
[2022-11-30] MEDS: INSULIN HUMULIN 70/30 100 UNIT/ML 3ML SQ SCH ×2 (06:20→16:25)
[2022-11-30] MEDS: INSULIN HUMULIN R 100 UNIT/ML 3ML SQ SCH ×4 (06:21→21:06)
[2022-11-30] MEDS: POTASSIUM CHLORIDE 20 MEQ/100 ML BAG IV SCH (07:32)
[2022-11-30] MEDS: FAMOTIDINE 20MG TAB PO SCH ×2 (08:49→21:04)
[2022-11-30] MEDS: GABAPENTIN 100 MG CAPSULE PO SCH ×2 (14:51→21:03)
[2022-11-30] MEDS ORDERED: TRAMADOL HCL 50 MG TABLET PO PRN (17:30)
[2022-11-30] MEDS ORDERED: DOCUSATE SODIUM 100 MG CAP PO SCH (18:00)
[2022-11-30] MEDS ORDERED: SENNOSIDES 8.6 MG TABLET PO SCH (21:00)
[2022-12-01] VITALS (7 sets, daily range): BP systolic 102–147; BP diastolic 67–86; PULSE 78–107; RESP 20–21; O2SAT 96–99
[2022-12-01] MEDS: CEFEPIME HCL 1 GM VIAL IVPB SCH ×2 (02:17→15:00)
[2022-12-01] MEDS: VANCOMYCIN 1.25 GM/250 ML BAG 250 ML IV SCH ×2 (03:42→18:33)
[2022-12-01] MEDS: MORPHINE 2 MG SYG IVP PRN ×5 (03:45→22:39)
[2022-12-01 05:47] LABS: BASOPHILS # (AUTO) 0.01 K/uL (0.00-0.20); BASOPHILS % (AUTO) 0.2 % (0.0-5.0); EOSINOPHILS # (AUTO) 0.25 K/uL (0.00-0.70); EOSINOPHILS % (AUTO) 5.2 % (0.0-8.0); HEMATOCRIT 32.5 % (42-54); IMMATURE GRANULOCYTE ABSOLUTE 0.02 K/uL (0-1); LYMPHOCYTES # (AUTO) 1.7 K/uL (1.0-4.8); LYMPHOCYTES % (AUTO) 35.3 % (21.0-51.0); MEAN CORPUSCULAR HEMOGLOBIN 26.1 pg (27.0-33.0); MEAN CORPUSCULAR HGB CONC 32.3 g/dL (32.0-36.0); MEAN CORPUSCULAR VOLUME 80.8 fL (79-99); MONOCYTES # (AUTO) 0.5 K/uL (0.1-1.0); MONOCYTES % (AUTO) 9.9 % (3.0-13.0); NEUTROPHILS # (AUTO) 2.4 K/uL (1.8-7.7); PLATELET COUNT (AUTO) 237 K/uL (130-400); RED BLOOD CELL COUNT(AUTO) 4.02 MIL/uL (4.50-6.20); RED CELL DISTRIBUTION WIDTH 15.3 % (11.0-15.5); WHITE BLOOD COUNT (AUTO) 4.8 K/uL (4.8-10.8)
[2022-12-01 06:05] LABS: INR 0.93 (0.85-1.15); PROTHROMBIN TIME 10.3 SEC (9.6-11.6)
[2022-12-01 06:07] LABS: % IRON SATURATION 11.8 % (30-44)
[2022-12-01 06:18] LABS: ALBUMIN 2.7 g/dL (3.5-5.0); BILIRUBIN,TOTAL 0.2 mg/dL (0.2-1.0); CREATININE 1.1 mg/dL (0.5-1.5); MAGNESIUM 1.7 mg/dL (1.80-2.40); POTASSIUM 3.7 mmol/L (3.5-5.1)
[2022-12-01] MEDS: METRONIDAZOLE 500 MG TABLET PO SCH ×3 (06:21→22:38)
[2022-12-01] MEDS: INSULIN HUMULIN 70/30 100 UNIT/ML 3ML SQ SCH ×2 (06:23→16:05)
[2022-12-01] MEDS: INSULIN HUMULIN R 100 UNIT/ML 3ML SQ SCH ×4 (06:24→20:40)
[2022-12-01] MEDS: MAGNESIUM 2GM PREMIX 50ML 50 ML IV SCH (06:37)
[2022-12-01] MEDS: POTASSIUM CHLORIDE 20 MEQ/100 ML BAG IV SCH (09:00)
[2022-12-01] MEDS: DOCUSATE SODIUM 100 MG CAP PO SCH (09:04)
[2022-12-01] MEDS: FAMOTIDINE 20MG TAB PO SCH ×2 (09:04→20:40)
[2022-12-01] MEDS: GABAPENTIN 100 MG CAPSULE PO SCH ×3 (09:05→20:40)
[2022-12-01] MEDS: 0.9%NACL 10ML VIAL IV SCH (20:40)
[2022-12-02] MEDS: CEFEPIME HCL 1 GM VIAL IVPB SCH ×2 (02:23→14:09)
[2022-12-02 03:17] VITALS: BP 134/78; PULSE 87; RESP 16
[2022-12-02] MEDS: VANCOMYCIN 1.25 GM/250 ML BAG 250 ML IV SCH ×2 (03:59→15:49)
[2022-12-02 05:26] LABS: BASOPHILS # (AUTO) 0.02 K/uL (0.00-0.20); BASOPHILS % (AUTO) 0.4 % (0.0-5.0); EOSINOPHILS % (AUTO) 3.9 % (0.0-8.0); IMMATURE GRANULOCYTE ABSOLUTE 0.02 K/uL (0-1); LYMPHOCYTES # (AUTO) 1.6 K/uL (1.0-4.8); LYMPHOCYTES % (AUTO) 31.8 % (21.0-51.0); MEAN CORPUSCULAR HEMOGLOBIN 26.7 pg (27.0-33.0); MEAN CORPUSCULAR HGB CONC 32.2 g/dL (32.0-36.0); MEAN CORPUSCULAR VOLUME 82.9 fL (79-99); MONOCYTES # (AUTO) 0.5 K/uL (0.1-1.0); MONOCYTES % (AUTO) 9.8 % (3.0-13.0); NEUTROPHILS # (AUTO) 2.7 K/uL (1.8-7.7); NEUTROPHILS % (AUTO) 53.7 % (40.0-77.0); PLATELET COUNT (AUTO) 203 K/uL (130-400); RED BLOOD CELL COUNT(AUTO) 3.86 MIL/uL (4.50-6.20); RED CELL DISTRIBUTION WIDTH 15.6 % (11.0-15.5); WHITE BLOOD COUNT (AUTO) 5.1 K/uL (4.8-10.8)
[2022-12-02 05:47] LABS: ALBUMIN 2.7 g/dL (3.5-5.0); BILIRUBIN,TOTAL 0.1 mg/dL (0.2-1.0); MAGNESIUM 1.9 mg/dL (1.80-2.40); POTASSIUM 3.9 mmol/L (3.5-5.1); TOTAL PROTEIN, SERUM 6.8 g/dL (6.0-8.3)
[2022-12-02] MEDS: METRONIDAZOLE 500 MG TABLET PO SCH ×3 (06:27→22:49)
[2022-12-02] MEDS: INSULIN HUMULIN 70/30 100 UNIT/ML 3ML SQ SCH ×2 (06:30→19:27)
[2022-12-02] MEDS: INSULIN HUMULIN R 100 UNIT/ML 3ML SQ SCH ×4 (06:30→21:23)
[2022-12-02] MEDS: MORPHINE 2 MG SYG IVP PRN ×3 (06:31→21:21)
[2022-12-02 08:00] VITALS: BP 146/78; PULSE 78; RESP 17; O2SAT 96
[2022-12-02] MEDS: DOCUSATE SODIUM 100 MG CAP PO SCH (08:51)
[2022-12-02] MEDS: FAMOTIDINE 20MG TAB PO SCH ×2 (08:51→21:20)
[2022-12-02] MEDS: GABAPENTIN 100 MG CAPSULE PO SCH ×3 (08:52→21:20)
[2022-12-02] MEDS: POTASSIUM CHLORIDE 20 MEQ/100 ML BAG IV SCH (08:55)
[2022-12-02] MEDS: 0.9%NACL 10ML VIAL IV SCH ×2 (09:00→21:20)
[2022-12-02 12:00] VITALS: BP 114/70; PULSE 76; RESP 18
[2022-12-02] MEDS: LACTULOSE 20 GM/30 ML UDCUP PO PRN ×2 (14:39→22:49)
[2022-12-02 16:00] VITALS: BP 179/93; PULSE 90; RESP 17
[2022-12-02 20:00] VITALS: BP 141/76; PULSE 90; RESP 18; O2SAT 98
[2022-12-02 23:16] VITALS: BP 141/76; PULSE 98; RESP 18
[2022-12-03] MEDS: CEFEPIME HCL 1 GM VIAL IVPB SCH ×2 (02:30→14:10)
[2022-12-03] MEDS: VANCOMYCIN 1.25 GM/250 ML BAG 250 ML IV SCH ×2 (03:30→15:30)
[2022-12-03] MEDS: METRONIDAZOLE 500 MG TABLET PO SCH ×2 (07:00→14:13)
[2022-12-03] MEDS: INSULIN HUMULIN R 100 UNIT/ML 3ML SQ SCH ×4 (07:30→20:01)
[2022-12-03] MEDS: INSULIN HUMULIN 70/30 100 UNIT/ML 3ML SQ SCH ×2 (07:30→18:34)
[2022-12-03 08:00] VITALS: BP 104/61; PULSE 74; RESP 19; O2SAT 98
[2022-12-03] MEDS: POTASSIUM CHLORIDE 20 MEQ/100 ML BAG IV SCH (09:00)
[2022-12-03] MEDS: FAMOTIDINE 20MG TAB PO SCH ×2 (10:58→19:57)
[2022-12-03] MEDS: DOCUSATE SODIUM 100 MG CAP PO SCH (10:58)
[2022-12-03] MEDS: 0.9%NACL 10ML VIAL IV SCH (10:58)
[2022-12-03] MEDS: GABAPENTIN 100 MG CAPSULE PO SCH ×3 (10:58→19:58)
[2022-12-03 12:00] VITALS: BP 104/61; PULSE 74; RESP 19
[2022-12-03] MEDS: MORPHINE 2 MG SYG IVP PRN ×2 (14:00→20:05)
[2022-12-03 16:00] VITALS: BP 155/87; PULSE 92; RESP 19
[2022-12-03 17:39] LABS: ALBUMIN 2.9 g/dL (3.5-5.0); BILIRUBIN,TOTAL 0.2 mg/dL (0.2-1.0); CREATININE 1.1 mg/dL (0.5-1.5); MAGNESIUM 1.7 mg/dL (1.80-2.40); POTASSIUM 4.6 mmol/L (3.5-5.1); TOTAL PROTEIN, SERUM 7.2 g/dL (6.0-8.3)
[2022-12-03 18:42] LABS: BASOPHILS # (AUTO) 0.02 K/uL (0.00-0.20); BASOPHILS % (AUTO) 0.4 % (0.0-5.0); EOSINOPHILS # (AUTO) 0.24 K/uL (0.00-0.70); EOSINOPHILS % (AUTO) 4.3 % (0.0-8.0); HEMATOCRIT 35.2 % (42-54); IMMATURE GRANULOCYTE ABSOLUTE 0.01 K/uL (0-1); LYMPHOCYTES # (AUTO) 1.6 K/uL (1.0-4.8); LYMPHOCYTES % (AUTO) 28.1 % (21.0-51.0); MEAN CORPUSCULAR HEMOGLOBIN 25.6 pg (27.0-33.0); MEAN CORPUSCULAR HGB CONC 31.5 g/dL (32.0-36.0); MEAN CORPUSCULAR VOLUME 81.3 fL (79-99); MONOCYTES # (AUTO) 0.5 K/uL (0.1-1.0); MONOCYTES % (AUTO) 8.2 % (3.0-13.0); NEUTROPHILS # (AUTO) 3.3 K/uL (1.8-7.7); NEUTROPHILS % (AUTO) 58.8 % (40.0-77.0); PLATELET COUNT (AUTO) 255 K/uL (130-400); RED BLOOD CELL COUNT(AUTO) 4.33 MIL/uL (4.50-6.20); RED CELL DISTRIBUTION WIDTH 15.9 % (11.0-15.5); WHITE BLOOD COUNT (AUTO) 5.6 K/uL (4.8-10.8)
== END 2022-12-03 20:35 | DRG 920 ==
LOC: EDH 11:49 → OBSVTOIN 14:21 → EDHIP 14:21 → 3CH 21:33
PROVIDERS: ADMIT Hospitalist; ATTEND Hospitalist
DX: T81.30XA Disruption of wound, unspecified, initial encounter (principal); E44.1 Mild protein-calorie malnutrition; M86.8X7 Other osteomyelitis, ankle and foot; N17.9 Acute kidney failure, unspecified; E11.69 Type 2 diabetes mellitus with other specified complication; E11.65 Type 2 diabetes mellitus with hyperglycemia; E11.621 Type 2 diabetes mellitus with foot ulcer; L97.509 Non-pressure chronic ulcer of other part of unspecified foot with unspecified severity; D64.9 Anemia, unspecified; B95.2 Enterococcus as the cause of diseases classified elsewhere; E11.51 Type 2 diabetes mellitus with diabetic peripheral angiopathy without gangrene; I10 Essential (primary) hypertension; E66.9 Obesity, unspecified; W18.2XXA Fall in (into) shower or empty bathtub, initial encounter; Y83.5 Amputation of limb(s) as the cause of abnormal reaction of the patient, or of later complication, without mention of misadventure at the time of the procedure; Y92.009 Unspecified place in unspecified non-institutional (private) residence as the place of occurrence of the external cause; Y93.E1 Activity, personal bathing and showering; Z82.49 Family history of ischemic heart disease and other diseases of the circulatory system; Z83.3 Family history of diabetes mellitus; Z68.24 Body mass index [BMI] 24.0-24.9, adult
CPT/HCPCS: 36415; 36569; 71045; 72100; 73030; 73620; 73718; 80048; 80053; 80061; 80202; 82010; 82550; 82728; 82948; 83036; 83540; 83550; 83605; 83735; 84484; 85025; 85027; 85045; 85610; 85730; 87040; 87070; 87076; 87077; 87186; C1894; G0378; J0692; J1815; J1885; J2270; J2405; J3370; J3475; J3480; J7070; 3370

== ENCOUNTER → 2023-03-15 | Emergency (ER) | payer OTHER ==
[~2023-03-15] VITALS: Ht 180.3 cm; Wt 86.2 kg
[~2023-03-15] MED LIST changes: +0.9%NACL 1000ML 1,000 ML IV ONE; +ACET-2079 PO; +CLIN-141 PO; +HYDROCODONE/ACETAMINOPHEN 10/325 MG TAB PO ONE; +INSULIN HUMULIN R 100 UNIT/ML 3ML IV ONE; +MORPHINE 4 MG SYG IM ONE; +ONDANSETRON 4MG INJ IVP ONE
[2023-03-15 10:03] LABS: BASOPHILS # (AUTO) 0.02 K/uL (0.00-0.20); BASOPHILS % (AUTO) 0.2 % (0.0-5.0); EOSINOPHILS # (AUTO) 0.06 K/uL (0.00-0.70); EOSINOPHILS % (AUTO) 0.7 % (0.0-8.0); HEMATOCRIT 34.9 % (42-54); IMMATURE GRANULOCYTE ABSOLUTE 0.06 K/uL (0-1); LYMPHOCYTES # (AUTO) 2.1 K/uL (1.0-4.8); LYMPHOCYTES % (AUTO) 22.7 % (21.0-51.0); MEAN CORPUSCULAR HEMOGLOBIN 26.4 pg (27.0-33.0); MEAN CORPUSCULAR HGB CONC 33.2 g/dL (32.0-36.0); MEAN CORPUSCULAR VOLUME 79.5 fL (79-99); MONOCYTES # (AUTO) 0.7 K/uL (0.1-1.0); MONOCYTES % (AUTO) 7.4 % (3.0-13.0); NEUTROPHILS # (AUTO) 6.2 K/uL (1.8-7.7); NEUTROPHILS % (AUTO) 68.3 % (40.0-77.0); PLATELET COUNT (AUTO) 453 K/uL (130-400); RED BLOOD CELL COUNT(AUTO) 4.39 MIL/uL (4.50-6.20); RED CELL DISTRIBUTION WIDTH 14.7 % (11.0-15.5)
[2023-03-15 10:06] LABS: INR < 0.93 (0.85-1.15); PROTHROMBIN TIME 10.3 SEC (9.6-11.6)
[2023-03-15 10:07] LABS: PARTIAL THROMBOPLASTIN TIME 30.2 SEC (26.3-35.5)
[2023-03-15 10:10] LABS: ALBUMIN 2.4 g/dL (3.5-5.0); BILIRUBIN,TOTAL 0.2 mg/dL (0.2-1.0); CREATININE 1.2 mg/dL (0.5-1.5); POTASSIUM 3.9 mmol/L (3.5-5.1); TOTAL PROTEIN, SERUM 8.4 g/dL (6.0-8.3)
[2023-03-15 11:08] VITALS: BP 141/77; PULSE 100; RESP 18; O2SAT 96
[2023-03-15 12:03] LABS: APPEARANCE,URINE CLEAR (CLEAR); BILIRUBIN,URINE NEGATIVE (NEGATIVE); COLOR,URINE YELLOW (YELLOW); GLUCOSE, URINE (UA) >=1000 mg/dL (NEGATIVE); KETONES,URINE 15 mg/dL (NEGATIVE); LEUKOCYTE ESTERASE ,URINE NEGATIVE Leu/uL (NEGATIVE); NITRATE,URINE NEGATIVE (NEGATIVE); OCCULT BLOOD,URINE NEGATIVE (NEGATIVE); PH,URINE 5.5 (5.0-8.0); PROTEIN,URINE NEGATIVE (NEGATIVE)
[2023-03-15 12:04] LABS: ADD UA MICROSCOPIC YES
[2023-03-15 12:09] LABS: BACTERIA,URINE RARE /HPF (None Seen); WBC,URINE 0-1 /HPF (0-1)
== END ==
LOC: EDH 08:47
DX: E11.621 Type 2 diabetes mellitus with foot ulcer (principal); E11.65 Type 2 diabetes mellitus with hyperglycemia
CPT/HCPCS: 99284; 96374; 96361; 96375; 82550; 84484; 80053; 85025; 85610; 85730; 85651; 87040 ×2; 87088; 82948; 83605; 81001; 36415; 73630; 96372; 96376; J1815 ×2; J7030; J2405; J2270

== ENCOUNTER → 2023-06-28 | Emergency (ER) | payer OTHER ==
[~2023-06-28] VITALS: Ht 180.3 cm; Wt 81.6 kg
[~2023-06-28] MED LIST changes: -0.9%NACL 1000ML 1,000 ML IV ONE; -HYDROCODONE/ACETAMINOPHEN 10/325 MG TAB PO ONE; -INSULIN HUMULIN R 100 UNIT/ML 3ML IV ONE; -MORPHINE 4 MG SYG IM ONE; -ONDANSETRON 4MG INJ IVP ONE
[2023-06-28 12:37] VITALS: BP 90/48; PULSE 110; RESP 18; O2SAT 100
== END ==
LOC: EDH 12:25
DX: M79.605 Pain in left leg (principal); R50.9 Fever, unspecified; Z53.21 Procedure and treatment not carried out due to patient leaving prior to being seen by health care provider
CPT/HCPCS: 99281

== ENCOUNTER 2024-09-09 21:28 | Emergency (ER) | payer BC, OTHER ==
[~2024-09-09] VITALS: Ht 180.3 cm; Wt 83.0 kg
[2024-09-09 21:31] VITALS: BP 103/68; PULSE 104; RESP 20; TEMP 97.8
--- NOTE | 2024-09-09 22:00 | NUR ---
PATIENT REFUSED MEDICATIONS ORDERED BY PROVIDER, PER PATIENT, THEY WON'T WORK.
--- NOTE | 2024-09-09 22:05 | NUR ---
PROVIDER NOTIFIED PATIENT REFUSED MEDICATIONS, NO FURTHER ORDERS GIVEN
[2024-09-09] MEDS: HYDROcodone/APAP 5/325 1 TAB TABLET PO ONE (22:14)
[2024-09-09] MEDS: ketOROlac 60 MG VIAL (30MG/ML) IM ONE (22:14)
--- NOTE | 2024-09-09 22:42 | NUR ---
PROVIDER ASKED AGAIN FOR PAIN MEDICATIONS FOR PATIENT, VERBAL ORDER GIVEN. VERBAL ORDERED ENTERED IN COMPUTER
--- NOTE | 2024-09-09 22:45 | NUR ---
PATIENT MEDICATIONS PULLED FROM MEDICATION OMNICELL. PATIENT NOT FOUND IN ASSIGNED BED. PATIENT NOT FOUND IN BATHROOM OR ER LOBBY. REGISTRATION PATIENT LEFT. ER PROVIDER NOTIFIED.
[2024-09-09] MEDS ORDERED: morPHINE 2 MG SYG IM ONE (23:00)
--- NOTE | 2024-09-09 23:54 | ERN ---
ED Note History of Present Illness Stated Complaint: C/O PAIN TO LEFT KNEE; Chief Complaint: Knee Injury/Swelling Time Seen by MD: 21:31 Time Seen by Midlevel: 21:31 Dictation: The patient is a 44-year-old male with a history of diabetes, left below-knee amputation who presents to the emergency department with complaints of left knee pain. Patient reports knee pain has been going on for three weeks. Denies any trauma. Patient reports he was seen by his primary doctor and was referred to Dr. Gillette orthopedic but does not have an appointment until September 18 Allergies: Coded Allergies: piperacillin (Unverified Allergy, Unknown, 06/29/21) Home Meds Active Scripts Acetaminophen with Codeine (Acetaminophen-Cod #3 Tablet) 300 Mg-30 Mg Tablet, 1 TAB PO Q4H PRN for PAIN LEVEL 6 TO 10, #20 TAB Prov:BISMARK PULIDO V [facility] 03/15/23 Clindamycin HCl (Clindamycin HCl) 300 Mg Capsule, 1 CAP PO QID for 10 Days, #40 CAP 0 Refills Prov:BISMARK PULIDO [facility] 03/15/23 Tramadol Hcl (Tramadol HCl) 50 Mg Tablet, 50 MG PO q8 hrs PRN for PAIN LEVEL 6 TO 10 for 7 Days, #15 TAB Prov:HA HARRIS NP 10/29/22 Rivaroxaban (Xarelto) 2.5 Mg Tablet, 2.5 MG PO BID for 30 Days, #60 TAB Prov:HA HARRIS NP 10/29/22 Famotidine (Famotidine) 20 Mg Tablet, 20 MG PO DAILY for 30 Days, #30 TAB Prov:HA HARRIS NP 10/29/22 Aspirin (ASPIRIN 81 MG ECTAB) 81 Mg Ectab, 81 MG PO DAILY for 30 Days, #30 TAB.EC Prov:HA HARRIS NP 10/29/22 Reported Medications Hum Insulin NPH/Reg Insulin Hm (Humulin 70-30 Vial) 100 Unit/1 Ml Vial, 0 SQ BIDAC, VIAL 18 UNITS IN QAM 20 UNITS IN HS 10/23/22 Past Medical History Past Medical History: Diabetes-Type I Additional Past Medical Hx: FOOT ULCER Surgical History: Other Surgical History Other: LEFT BKA Family History: Negative Social History: ETOH, Lives with family, Other RN Note Reviewed/Agreed w/PFSH: Yes Review of System Dictation Constitutional: Negative for fever,chills, and weight loss Eyes: Negative for injury, pain,redness, and discharge ENT: Negative for injury,pain or swelling Cardiovascular: Negative for chest pain, palpitations, and edema Respiratory: Negative for shortness of breath, cough, and wheezing, Abdomen/GI: Negative for abdominal pain, nausea, vomiting, diarrhea, and constipation Back: Negative for injury and pain : Negative for injury, bleeding and discharge MS/Extremity: Positive for left knee pain Skin: Negative for rash, and discoloration Neuro: Negative for headache, weakness, numbness, tingling, and seizure Psych: Negative for suicide ideation, homicidal ideation, and hallucinations Initial Vital Sign VS Vital Signs Date Time Temp Pulse Resp B/P (MAP) Pulse Ox O2 Delivery O2 Flow Rate FiO2 09/09/24 21:31 97.9 104 20 103/68 100 Room Air Physical Exam Dictation Vital Signs reviewed General Appearance: Alert, oriented x 3, no acute distress, well developed, nou rished. Head and Face: non-traumatic. Eyes: PERRL, pink conjunctivas, eyelid no trauma, anterior chamber with arcus senilis. Ears: Pinnas intact and no signs of trauma or erythema ear canals clear and no discharge TM no erythema Nose: No discharge, no bleeding. Oropharynx: Mouth normal, tongue pink. pharynx clear,no erythema, tonsils no exudates, no abscesses noted, mucous mem brane moist Neck: Supple, non-tender, no thyromegaly, no masses, no JVD, no bruits Breast:Deferred Chest:No tenderness, no crepitus, no paradoxical movement, no retractions Lungs:Clear, well-ventilated, symmetric, no rales, no wheezing, no rhonchi, no stridor, good breath sounds bilaterally Heart: Regular rate, regular rhythm, no murmur, no gallops Vascular: no peripheral edema, Abdomen: Soft, positive bowel sounds, nondistended, no guarding, nontender, no rebound, no masses no hepatomegaly, no splenomegaly, no Alfaro's sign, no hernias. Rectal: Deferred Genital: Deferred Neurological: Normal speech, motor function intact, sensory function intact Musculoskeletal: Neck nontender, full range of motion, back nontender, full range of motion, Extremities: nontender, full range of motion full range of motion to left knee, no wounds, cap refill less than 2 seconds Skin: Color pink, dry, no turgor, no rash, no lacerations, no abrasions, no contusions. Lymphatic: Deferred Results (Laboratory/Radiology) Labs Reviewed?: Yes ED Course ED Course Orders Procedure Category Date Status Time Knee 3vws Lt RAD 09/09/24 Taken 21:45 Ketorolac 60mg/2ml PHA 09/09/24 Complete (Toradol 60mg/2ml) 22:00 Hydrocodone/Apap PHA 09/09/24 Complete 5/325 ([place] 5/325mg) 22:00 Morphine 2mg Syg PHA 09/09/24 Complete (Morphine 2mg Syg) 23:00 Current Medications Medications (Trade) Dose Ordered Sig/[place] Route PRN Reason Start Time Stop Time Status Last Admin Dose Admin Acetaminophen/ Hydrocodone Bitart (NORco 5/325MG) 1 tab ONCE ONCE PO 09/09/24 22:00 09/09/24 22:01 DC Ketorolac Tromethamine (toRADol 60MG/ 2ML) 60 mg ONCE ONCE IM 09/09/24 22:00 09/09/24 22:01 DC Morphine Sulfate (morPHINE 2MG SYG) 2 mg ONCE ONCE IM 09/09/24 23:00 09/09/24 23:01 DC Vital Signs Date Time Temp Pulse Resp B/P (MAP) Pulse Ox O2 Delivery O2 Flow Rate FiO2 09/09/24 21:31 97.9 104 20 103/68 100 Room Air Medical Decision Making MDM The patient is a 44-year-old male with a history of diabetes, left below-knee amputation who presents to the emergency department with complaints of left knee pain. Patient reports knee pain has been going on for three weeks. Denies any trauma. Patient reports he was seen by his primary doctor and was referred to Dr. Gillette orthopedic but does not have an appointment until September 18 Differential diagnosis: Knee contusion, knee sprain, arthritis Patient refused Toradol and [place]. Requested morphine.. Patient eloped from ER without notifying staff. DX & DISP Disposition: AMA Departure Condition: Stable Referrals: BRANDY LUCERO DO (PCP) I have reviewed the case, and I agree with, Diagnosis and Plan KRISTOFER BECERRA [facility] September 09, 2024 23:54
--- NOTE | 2024-09-10 09:08 | HMCIMG ---
Exam Type: KNEE 3VWS LT Clinical Information: pain Comparison: None Findings: The bone examination is unremarkable. No fractures or dislocations are seen. No radiopaque foreign bodies are noted. Soft tissues are preserved. IMPRESSION: Normal examination.
== END 2024-09-09 22:45 | disposition left against medical advice (07) ==
LOC: EDH 21:28
DX: M25.562 Pain in left knee (principal); E10.9 Type 1 diabetes mellitus without complications; Z79.01 Long term (current) use of anticoagulants; Z79.82 Long term (current) use of aspirin; Z79.899 Other long term (current) drug therapy; Z88.0 Allergy status to penicillin; Z89.512 Acquired absence of left leg below knee; Z98.890 Other specified postprocedural states
CPT/HCPCS: 73562; 99283; J1885; J2270